=== PATIENT | female | born 1980 | race Caucasian/White ===

== ENCOUNTER 2018-10-19 16:20 | Emergency (ER) | payer MEDICAID ==
[~2018-10-19] VITALS: Ht 162.6 cm; Wt 86.2 kg
[2018-10-19 16:31] VITALS: BP_SYST 153
--- NOTE | 2018-10-19 16:40 | NUR ---
Patient to ER bed 6 to gown for evaluation. Side rails up. Report given to Augie PERAZA.
--- NOTE | 2018-10-19 16:43 | NUR ---
ALEKS Solorio at bedside examining patient.
--- NOTE | 2018-10-19 16:45 | NUR ---
C/O right calf swelling, pain which increases with dorsiflexion, slight discoloration lateral calf with warmth. Patient denies trauma, recent travel, smoking or estrogen use. Patient does report a recent PNA with decreased activity.
--- NOTE | 2018-10-19 17:00 | NUR ---
US at bedside for study.
[2018-10-19] MEDS ORDERED: KETOROLAC TROMETHAMINE 60 MG/2 ML VIAL IM ONE (17:15)
--- NOTE | 2018-10-19 17:50 | NUR ---
Pt tolerated medication well.
[2018-10-19 18:10] VITALS: BP_SYST 153
--- NOTE | 2018-10-19 18:10 | NUR ---
Patient given written and verbal discharge instructions and verbalizes understanding. ER MD discussed with patient the results and treatment provided. Patient in stable condition. ID arm band removed. Rx of Motrin given. Patient educated on pain management and to follow up with PMD. Pain Scale 2. Opportunity for questions provided and answered. Medication side effect fact sheet provided.
== END 2018-10-19 18:10 | disposition home or self-care (01) ==
LOC: SED 16:20
DX: S86.911A Strain of unspecified muscle(s) and tendon(s) at lower leg level, right leg, initial encounter (principal); R60.0 Localized edema; R03.0 Elevated blood-pressure reading, without diagnosis of hypertension; X58.XXXA Exposure to other specified factors, initial encounter; Y93.89 Activity, other specified; Y92.89 Other specified places as the place of occurrence of the external cause; Y99.8 Other external cause status
CPT/HCPCS: 93971; 96372; 99284; J1885